=== PATIENT | male | born 2000 | race Caucasian/White ===

== ENCOUNTER 2024-11-27 10:23 | Emergency (ER) | payer BC, OTHER ==
[~2024-11-27] VITALS: Ht 177.8 cm; Wt 77.1 kg
[2024-11-27 10:35] VITALS: BP 152/102
[2024-11-27] MEDS ORDERED: Tetracaine HCl/Pf 0.5% Opth Soln 4 ml LEFTEYE ONE (10:45)
[2024-11-27] MEDS ORDERED: Fluorescein Sod 1MG Opth Strips LEFTEYE ONE (10:45)
[2024-11-27] MEDS ORDERED: Erythromycin 0.5% Opth Oint 1 gm LEFTEYE ONE (13:35)
[2024-11-27] MEDS ORDERED: ERYT.5TO BOTHEYES (14:31)
== END 2024-11-27 14:15 | disposition home or self-care (01) ==
LOC: ER 10:23
DX: S05.02XA Injury of conjunctiva and corneal abrasion without foreign body, left eye, initial encounter (principal); W44.E0XA Non-magnetic metal object unspecified, entering into or through a natural orifice, initial encounter
CPT/HCPCS: 65220; 99283-25; A9270